=== PATIENT | male | born 1950 | race Two or more races ===

== ENCOUNTER 2016-05-17 14:52 | Emergency (ER) | payer OTHER ==
[~2016-05-17] VITALS: Ht 177.8 cm; Wt 61.2 kg
[2016-05-17] MEDS ORDERED: SODIUM CHLORIDE 0.9% 1,000 ML IVB ONE (15:57)
[2016-05-17 16:51] LABS: Basophils # (auto) 0 uL; DEFINITIVE VIEW TRANSMISSION; Eosinophils # (auto) 0 uL; Eosinophils % (auto) 0.1 % (0.0-7.0); Mean Platelet Volume 6.9 fL (7.4-10.4); Monocytes # (auto) 0.9 uL
[2016-05-17 16:56] LABS: Hematocrit 38.1 % (41.0-53.0); Hemoglobin 12.1 g/dL (13.5-17.5); Lymphocytes % (auto) 6.8 % (10.0-50.0); Mean Corpuscular Hemoglobin 22.3 pg (28.0-32.0); Mean Corpuscular Hgb Conc. 31.6 g/dL (32.0-36.0); Mean Corpuscular Volume 70.6 fL (80.0-100.0); Monocytes % (auto) 5.6 % (0.0-12.0); Neutrophils # (auto) 13.3 uL; Neutrophils % (auto) 87.5 % (37.0-80.0); Platelet Count (auto) 584 10^3/uL (140-450); Red Cell Distribution Width 19.9 % (11.6-16.0); White Blood Cell 15.2 10^3/uL (4.4-10.8)
[2016-05-17 17:08] LABS: Albumin 2.4 g/dL (3.4-5.0); Alkaline Phosphatase 221 U/L (45-117); Anion Gap 13 (5-15); Aspartate Aminotransferase 59 U/L (15-37); BUN/Creatinine Ratio 25.8; Bilirubin, Total 0.5 mg/dL (0.2-1.0); Blood Urea Nitrogen 58 mg/dL (7-18); Calcium 9.7 mg/dL (8.5-10.1); Carbon Dioxide 17 mmol/L (21-32); Chloride 108 mmol/L (98-107); GFR African American 38 mL/min; GFR Non-African American 31 mL/min; Glucose 148 mg/dL (74-106); Magnesium 1.2 mg/dL (1.6-2.6); Potassium 4.2 mmol/L (3.5-5.1); Sodium 138 mmol/L (136-145); Total Protein 8.1 g/dL (6.4-8.2)
[2016-05-17 17:18] LABS: Urine Bilirubin Negative (Negative); Urine Color PINK (Yellow); Urine Glucose Normal (Normal); Urine Granular Cast FEW /lpf (0); Urine Hyaline Cast FEW /lpf (0 - 2); Urine Ketone Negative (Negative); Urine Mucus FEW (None Seen); Urine Nitrite Negative (Negative); Urine RBC 14 /hpf (0 - 3); Urine Squamous Epithelial Cell FEW /hpf (<5)
[2016-05-17 17:20] LABS: Partial Thromboplastin Time 23.5 sec (22.64-33.71)
[2016-05-17 17:30] LABS: Urine Blood 3+ /uL (Negative)
[2016-05-17 17:31] LABS: INR 1.36 (0.9-1.15)
[2016-05-17] MEDS ORDERED: SODIUM CHLORIDE 0.9% 1,000 ML IV ONE (18:15)
[2016-05-17] MEDS ORDERED: SODIUM CHLORIDE 0.9% 2,000 ML IV ONE (18:30)
[2016-05-17] MEDS ORDERED: cefTRIAXone 1GM/50ML D5W 50 ML IV ONE (18:30)
[2016-05-17] MEDS ORDERED: PIPERACILLIN-TAZOB 3.375GM 100 ML IV ONE (18:30)
[2016-05-17] MEDS ORDERED: NOREPINEPHRINE BITARTRATE 250 ML IV SCH (18:30)
[2016-05-17 20:15] LABS: Anisocytosis Moderate; Hypochromia Moderate; Platelet Estimate Increased
[2016-05-17] MEDS ORDERED: ONDANSETRON ODT 4 MG TAB PO ONE (21:30)
[2016-05-17] MEDS ORDERED: LIDOCAINE 2%HCL (LOCAL ANESTH.) INJ 20ML MDV ONE (21:33)
[2016-05-17] MEDS: MAGNESIUM SULFATE 1GM/100ML 100 ML IV SCH ×2 (22:20→22:57)
[2016-05-17] MEDS ORDERED: LIDOCAINE HCL 2 %PF INJ 10ML AMP IJ ONE (22:30)
[2016-05-17] MEDS ORDERED: MORPHINE SULF INJ 2 MG/ML SYRINGE 1ML IV ONE (22:45)
[2016-05-17] MEDS: SODIUM CHLORIDE 0.9% 1,000 ML IV SCH (23:23)
[2016-05-18] MEDS ORDERED: MAGNESIUM SULFATE 1GM/100ML 100 ML IV ONE
[2016-05-18] MEDS ORDERED: PIPERACILLIN-TAZOB 2.25GM 50 ML IV SCH
[2016-05-18] MEDS: MAGNESIUM SULFATE 1GM/100ML 100 ML IV SCH (00:07)
[2016-05-18] MEDS ORDERED: MORPHINE SULF INJ 2 MG/ML SYRINGE 1ML IV ONE (00:45)
[2016-05-18] MEDS ORDERED: ONDANSETRON HCL 4 MG/2 ML VIAL IV ONE (00:45)
[2016-05-18 00:55] VITALS: BP 159/48
[2016-05-18] MEDS: SODIUM CHLORIDE 0.9% 1,000 ML IV SCH (01:10)
== END 2016-05-18 03:15 | disposition short-term general hospital (02) ==
LOC: ER 14:52 → EDUNIT# 14:52 → ER 05-18 03:15
DX: A41.9 Sepsis, unspecified organism (principal); R55 Syncope and collapse; I95.9 Hypotension, unspecified; E83.42 Hypomagnesemia; R79.1 Abnormal coagulation profile; E43 Unspecified severe protein-calorie malnutrition; R73.9 Hyperglycemia, unspecified; N28.9 Disorder of kidney and ureter, unspecified; I25.2 Old myocardial infarction; Z93.6 Other artificial openings of urinary tract status; Z93.3 Colostomy status; Z94.0 Kidney transplant status; Z85.51 Personal history of malignant neoplasm of bladder; Z85.038 Personal history of other malignant neoplasm of large intestine; Z88.6 Allergy status to analgesic agent; Z88.8 Allergy status to other drugs, medicaments and biological substances; Z95.1 Presence of aortocoronary bypass graft
CPT/HCPCS: 36415; 36556; 70450; 71010; 73501; 74176; 80053; 80320; 81001; 82962; 83605; 83735; 84443; 84484; 85025; 85379; 85610; 85730; 87040; 93005; 94761; 96361; 96365; 96366; 96367; 96375; 99285; G0434; J0696; J2270; J2405; J2543; J3475; J7030; Q0162

== ENCOUNTER 2016-05-24 11:03 | Observation (INO) | payer OTHER ==
[~2016-05-24] VITALS: Ht 177.8 cm; Wt 62.1 kg
[2016-05-24] MEDS ORDERED: SODIUM CHLORIDE 0.9% 1,000 ML IVB ONE (12:50)
[2016-05-24] MEDS ORDERED: LIDOCAINE 1% HCL (LOCAL ANESTH.) INJ 20ML MDV ONE (14:45)
[2016-05-24] MEDS ORDERED: LIDOCAINE 1% HCL (LOCAL ANESTH.) INJ 20ML MDV IJ ONE (15:00)
[2016-05-24] MEDS ORDERED: LIDOCAINE 2%HCL (LOCAL ANESTH.) INJ 20ML MDV ONE (15:02)
[2016-05-24 16:21] VITALS: BP 109/64
== END 2016-05-24 16:45 | disposition short-term general hospital (02) | DRG 312 ==
LOC: EDUNIT# 11:03 → ER 11:10 → EDUNIT# 11:10 → OVERFLOW 12:51 → ER 16:45
PROVIDERS: ADMIT Family Medicine; ATTEND Family Medicine
DX: R55 Syncope and collapse (principal); Z94.0 Kidney transplant status; R53.1 Weakness; S31.109A Unspecified open wound of abdominal wall, unspecified quadrant without penetration into peritoneal cavity, initial encounter; I50.9 Heart failure, unspecified; I11.0 Hypertensive heart disease with heart failure; I25.10 Atherosclerotic heart disease of native coronary artery without angina pectoris; F32.9 Major depressive disorder, single episode, unspecified; E11.9 Type 2 diabetes mellitus without complications; F41.9 Anxiety disorder, unspecified; Z82.49 Family history of ischemic heart disease and other diseases of the circulatory system; Z93.3 Colostomy status; Z95.1 Presence of aortocoronary bypass graft; X58.XXXA Exposure to other specified factors, initial encounter; Y93.89 Activity, other specified; Y92.89 Other specified places as the place of occurrence of the external cause; Y99.8 Other external cause status
CPT/HCPCS: 70450; 71010; 93005; 96360; 99285; G0378; J2001; J7030